=== PATIENT | male | born 1950 | race Caucasian/White ===

== ENCOUNTER → 2019-11-10 | Outpatient (CLI) | payer BC ==
--- NOTE | 2019-11-10 17:05 | RAD ---
Sonography of the left lower back Clinical indications: Mass. FINDINGS: High-resolution sonography of the palpable mass of the left lower back as indicated by the patient was performed. There are 2 similar heterogeneous solid masses with a slightly hypoechoic appearance in this area. It is possible that this could represent one bilobed mass. The superior mass measures 2.3 cm x 0.8 cm x 3.9 cm in size. The more inferior mass measures 7.3 cm x 1.5 cm x 3.9 cm. No abnormal color Doppler flow is seen within either mass. 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 The lipomatous nature of this mass may be confirmed with CT imaging through this area if clinically needed. Otherwise recommend clinical follow-up with regard to any growth in size since a sarcoma has not been excluded. Electronically signed by: Dante Johnston MD (11/10/2019 5:02 PM) [id number]
== END | disposition home or self-care (01) ==
LOC: US 15:12
PROVIDERS: ATTEND Family Medicine
DX: R22.2 Localized swelling, mass and lump, trunk (principal)
CPT/HCPCS: 76881